=== PATIENT | male | born 1990 | race African-American/Black ===

== ENCOUNTER 2017-06-08 10:50 | Emergency (ER) | payer MEDICAID, OTHER ==
[2017-06-08 11:04] VITALS: BP 103/63; PULSE 81; RESP 16; TEMP 98.2; O2SAT 97
--- NOTE | 2017-06-08 11:35 | EDPHY ---
General Narrative: CHIEF COMPLAINT: Feeling tired since HISTORY OF PRESENT ILLNESS: Patient complains of feeling tired since . This started abruptly. He has been extremely tired with difficulty getting up at normal time were doing his normal daily functions. He reports this was preceded by 2-3 days of sore throat. He has had no chest pain or cough. No runny nose. No shortness of breath. No headache, neck pain or stiffness. No abdominal urinary complaints. No rashes or lesions. No recent travel. No tick bites. No known sick contacts. He has not yet been evaluated for this. No other associated complaints or modifying factors. REVIEW OF SYSTEMS: Ten systems reviewed and are negative unless otherwise noted in the HPI PCP: [facility] SPECIALISTS: None PAST MEDICAL HISTORY: None PAST SURGICAL HISTORY: None SOCIAL HISTORY: Nonsmoker. Currently student [employer] FAMILY HISTORY: Noncontributory EXAMINATION General Appearance: Alert, no distress Head: normocephalic, atraumatic Eyes: Pupils equal and round, no conjunctival pallor or injection ENT, Mouth: Mucous membranes moist. Uvula is midline. There is minimal posterior erythema. No edema. No exudate. Airway widely patent.postauricular lymphadenopathy. Neck: Normal inspection, supple, no midline tenderness. No meningismus or rigidity. Painless range of motion all planes. Respiratory: Lungs are clear to auscultation . No wheezing, rhonchi or crackles Cardiovascular: Regular rate and rhythm. No murmur Gastrointestinal: Abdomen is soft and nontender. No hepatosplenomegaly Neurological: A&O, nonfocal, normal gait. Strength is symmetric in all 4 limbs Skin: Warm and dry, no rash no petechiae or purpura Extremities: Nontender, no pedal edema Psychiatric: Mood and affect normal DIFFERENTIAL DIAGNOSES: Including but not limited to infectious mononucleosis, strep pharyngitis, weakness, viral illness MDM: 11:30 a.m. Complaints of feeling tired since , proceeded by sore throat. Clinically the patient appears to have infectious mononucleosis pain He is asking for blood test and "to get this fixed." I did offer laboratory studies including mono test but I informed him that this may not changed his care. He has declined laboratory test at this time. He says he would like to go back to [facility] for testing. I do feel this is reasonable as this is likely self-limiting infectious mononucleosis. His abdominal exam is benign without any appreciated splenomegaly. He has no meningismus. His vital signs are within normal limits. We discussed discharge home with follow-up at [facility] and we discussed ED precautions. We discussed avoiding contact sports for the next 2 weeks. He is comfortable with this plan and discharged home stable condition. SUPERVISION: This patient was independently evaluated without direct involvement of or examination by the attending physician. - History Smoking Status: Never smoked - Objective Vital Signs: Initial Vital Signs Temperature (C) 98.2 F 06/08/17 11:02 Heart Rate 81 06/08/17 11:02 Respiratory Rate 16 06/08/17 11:02 Blood Pressure 103/63 06/08/17 11:02 O2 Sat (%) 97 06/08/17 11:02 O2 Delivery Mode Room Air Allergies/Adverse Reactions: No Known Allergies Allergy (Verified 06/08/17 11:01) Home Medications: Medication Instructions Recorded NK [No Known Home Meds] 04/01/15 Departure - Departure Disposition: Home, Routine, Self-Care Clinical Impression: Feeling tired Pharyngitis Qualifiers: Pharyngitis/tonsillitis etiology: unspecified etiology Qualified Code(s): J02.9 - Acute pharyngitis, unspecified Condition: Good Instructions: Mononucleosis (ED) Additional Instructions: 1. Follow up on campus with [facility] at 2. ED precautions as discussed Referrals: [facility],. [Clinic] - As per Instructions
== END 2017-06-08 11:42 | disposition home or self-care (01) ==
DX: R53.83 Other fatigue (principal); J02.9 Acute pharyngitis, unspecified